=== PATIENT | female | born 2000 | race Two or more races ===

== ENCOUNTER 2025-04-06 00:59 | Emergency (ER) | payer OTHER ==
[~2025-04-06] VITALS: Ht 152.4 cm; Wt 40.8 kg
[2025-04-06 01:11] VITALS: BP 104/67; O2SAT 98
[2025-04-06] MEDS ORDERED: ACETAMINOPHEN 500 MG GEL..CAP PO ONE (02:13)
[2025-04-06] MEDS ORDERED: ACETAMINOPHEN 500 MG GEL..CAP PO STA (02:15)
[2025-04-06 02:33] LABS: BASO % 0.2 % (0.1-1.2); EOS # 0.02 (0.04-0.54); EOS % 0.2 % (0.7-7.0); LYMPH # 0.74 (1.18-3.74); LYMPH % 7.0 % (19.3-53.1); MEAN PLATELET VOLUME 8.50 fl (9.4-12.4); MONO # 0.80 (0.24-0.82); MONO % 7.6 % (4.7-12.5); NEUT # 8.97 (1.56-6.13); NEUT % 84.8 % (34.0-71.1); RED CELL DISTRIBUTION WIDTH 12.8 % (11.6-14.4)
[2025-04-06 03:07] LABS: COVID-19 AG NEGATIVE (NEGATIVE)
[2025-04-06] MEDS ORDERED: CEFTRIAXONE SODIUM 1,000 MG VIAL IM STA (03:22)
[2025-04-06] MEDS ORDERED: DUI500 PO (03:27)
[2025-04-06] MEDS ORDERED: ORASEP SOLUTION30 M1 MM ×2 (03:27→03:29)
[2025-04-06] MEDS ORDERED: CEFTRIAXONE SODIUM 1,000 MG VIAL ONE (03:30)
[2025-04-06] MEDS ORDERED: LIDOCAINE HCL 1% 10ML VIAL ONE (03:30)
== END 2025-04-06 03:41 ==
LOC: ER 00:59
PROVIDERS: General Practice
DX: J02.9 Acute pharyngitis, unspecified (principal); Z20.822 Contact with and (suspected) exposure to COVID-19